=== PATIENT | male | born 1970 | race Caucasian/White ===

== ENCOUNTER → 2016-03-31 | Outpatient (CLI) | payer BC ==
[~2016-03-31] MED LIST: PREDNISONE20 MG PO; ZESTRIL 10MG10 MG PO
== END ==
LOC: SUN.DIA 07:24
DX: E11.65 Type 2 diabetes mellitus with hyperglycemia (principal); Z79.84 Long term (current) use of oral hypoglycemic drugs; Z68.35 Body mass index [BMI] 35.0-35.9, adult; Z71.3 Dietary counseling and surveillance; F17.210 Nicotine dependence, cigarettes, uncomplicated
CPT/HCPCS: G0108

== ENCOUNTER → 2016-04-28 | Outpatient (CLI) | payer BC | LOC: SUN.DIA 08:38 | DX: E11.65 Type 2 diabetes mellitus with hyperglycemia (principal); Z68.35 Body mass index [BMI] 35.0-35.9, adult; Z79.84 Long term (current) use of oral hypoglycemic drugs; Z71.3 Dietary counseling and surveillance; F17.210 Nicotine dependence, cigarettes, uncomplicated | CPT/HCPCS: G0108 ==

== ENCOUNTER → 2016-06-04 | Outpatient (REF) | LOC: ZLAB.WCH 16:02 | DX: Z01.89 Encounter for other specified special examinations (principal) ==

== ENCOUNTER → 2016-09-03 | Outpatient (REF) | LOC: ZLAB.WCH 18:23 | DX: Z01.89 Encounter for other specified special examinations (principal) ==

== ENCOUNTER → 2016-12-24 | Outpatient (REF) | LOC: ZLAB.WCH 14:49 | DX: Z01.89 Encounter for other specified special examinations (principal) ==

== ENCOUNTER → 2017-05-05 | Outpatient (REF) ==
[2017-05-05 19:42] LABS: PSA-TOTAL 0.89 ng/mL (0-4)
[2017-05-09 11:55] LABS: THYROID STIMULATING HORMONE 0.876 uIU/mL (0.465-4.680)
== END ==
LOC: ZLAB.WCH 19:00
PROVIDERS: Internal Medicine
DX: Z01.89 Encounter for other specified special examinations (principal)
CPT/HCPCS: G0103

== ENCOUNTER → 2018-02-27 | Outpatient (REF) | LOC: ZLAB.WCH 16:13 | DX: Z01.89 Encounter for other specified special examinations (principal) ==